=== PATIENT | female | born 1980 | race African-American/Black ===

== ENCOUNTER 2017-01-13 09:19 | Emergency (ER) | payer SELFPAY ==
[~2017-01-13] VITALS: Ht 172.7 cm; Wt 96.2 kg
[~2017-01-13 09:19] MED LIST: ALBUTEROL SULF8.5 GM INH; AZITHROMYCIN250 MG ORAL; DILANTIN100 MG PO; GUAIFENESIN-CO118 M1 ORAL; IBUPROFEN600 MG ORAL; NYQUIL D COLD295 M1 PO; PREDNISONE20 MG ORAL; PROMETHAZINE-C118 M1 ORAL
[2017-01-13 09:55] VITALS: BP 133/62
[2017-01-13] MEDS ORDERED: PROMETHAZINE-C118 M1 ORAL (10:27)
[2017-01-13] MEDS ORDERED: AZITHROMYCIN250 MG ORAL (10:27)
[2017-01-13] MEDS ORDERED: ALBUTEROL SULF8.5 GM INH ×2 (10:27)
[2017-01-13 10:49] VITALS: BP 133/62
--- NOTE | 2017-01-14 06:44 | Emergency Room Report ---
History of Present Illness General Chief Complaint: Upper Respiratory Illness Source: Patient Present Illness HPI 36-year-old female presents to ED for evaluation of sore throat and cough. Notes symptoms for the last 10 days. Cough is productive with greenish phlegm. Notes intermittent chills. Afebrile in triage. Complaining of sore throat. Throbbing, 8/10, nonradiating. She states her son was initially sick then likely passed the symptoms to her. No other aggravating or relieving factors. Denies patient associated symptom Allergies: Coded Allergies: PENICILLINS (Verified Allergy, Severe, Hives, 03/28/13) ACETAMINOPHEN (Verified Adverse Reaction, Severe, GI UPSET, 03/28/13) HYDROCODONE BIT (Verified Adverse Reaction, Severe, GI UPSET, 03/28/13) Patient History Past Medical History: none Past Surgical History: none Pertinent Family History: none Social History: Denies: alcohol use, drug use, smoking Last Menstrual Period: 01/10/17 Now: No : 1 Para: 1 Immunizations: UTD Reviewed Nursing Documentation: PMH: Agreed, PSxH: Agreed Nursing Documentation-PMH Past Medical History: No Stated History Hx Seizures: No Review of Systems All Other Systems: negative except mentioned in HPI Physical Exam Vital Signs Date Time Temp Pulse Resp B/P Pulse Ox O2 Delivery O2 Flow Rate FiO2 01/13/17 09:49 98.1 85 18 133/62 99 Room Air Sp02 EP Interpretation: reviewed, normal General Appearance: no apparent distress, alert, GCS 15, non-toxic Head: normocephalic, atraumatic Eyes: bilateral eye PERRL, bilateral eye normal inspection ENT: hearing grossly normal, normal pharynx, no angioedema, normal voice Neck: full range of motion, supple/symm/no masses Respiratory: chest non-tender, lungs clear, normal breath sounds, speaking full sentences Cardiovascular #1: regular rate, rhythm, no edema Cardiovascular #2: 2+ carotid (R), 2+ carotid (L), 2+ radial (R), 2+ radial (L) , 2+ dorsalis pedis (R), 2+ dorsalis pedis (L) Gastrointestinal: normal bowel sounds, non tender, soft, non-distended, no guarding, no rebound Rectal: deferred Genitourinary: normal inspection, no CVA tenderness Musculoskeletal: back normal, gait/station normal, normal range of motion, non- tender Neurologic: alert, oriented x3, responsive, motor strength/tone normal, sensory intact, speech normal Psychiatric: judgement/insight normal, memory normal, mood/affect normal, no suicidal/homicidal ideation Reflexes: 3+ bicep (R), 3+ bicep (L), 3+ tricep (R), 3+ tricep (L), 3+ knee (R) , 3+ knee (L) Skin: normal color, no rash, warm/dry, well hydrated Lymphatic: no adenopathy Medical Decision Making Diagnostic Impression: Primary Impression: Atypical pneumonia ER Course Hospital Course 36-year-old female presents to ED complaining of cough, sore throat Differential diagnoses include: URI, pharyngitis, otitis media, asthma Clinical course Patient placed on stretcher. After initial history, physical exam reveals a female in no acute distress. Bilateral TM unremarkable. No pharyngeal erythema. No tonsillar exudates. No lymphadenopathy. lungs clear. abdomen soft. Given prolonged persistence of symptoms we will treat as atypical pneumonia Diagnosis - atypical pneumonia Stable and discharged home with Rx Stewart. Instructed to followup with PMD. Return to ED if symptoms recur or worsen Last Vital Signs Date Time Temp Pulse Resp B/P Pulse Ox O2 Delivery O2 Flow Rate FiO2 01/13/17 10:49 98.1 18 133/62 99 Room Air 01/13/17 10:09 85 Status: improved Disposition: HOME, SELF-CARE Condition: Stable Scripts Albuterol Sulfate* (ALBUTEROL SULFATE MDI*) 8.5 Gm Hfa.aer.ad 2 PUFF INH Q6H, #1 EA 0 Refills Prov: GAVIN FOSTER M.D. 01/13/17 Azithromycin* (ZITHROMAX*) 250 Mg Tablet 250 MG ORAL DAILY, #6 TAB 0 Refills Take two tablets by mouth today, then take one tablet by mouth daily for four days Prov: GAVIN FOSTER M.D. 01/13/17 Codeine/Promethazine Hcl* (PROMETHAZINE-CODEINE SYRUP*) 118 Ml Syrup 5 ML ORAL Q6H Y for For Cough, #118 ML 0 Refills Prov: GAVIN FOSTER M.D. 4/8/17 Albuterol Sulfate* (ALBUTEROL SULFATE MDI*) 8.5 Gm Hfa.aer.ad 2 PUFF INH Q4H Y for cough/wheezing, #1 EA 0 Refills Prov: GAVIN FOSTER M.D. 01/13/17 Patient Instructions: Community-Acquired Pneumonia, Adult GAVIN FOSTER M.D. Jan 14, 2017 06:44
== END 2017-01-13 10:52 | disposition home or self-care (01) ==
LOC: EMR 09:58
DX: J18.9 Pneumonia, unspecified organism (principal); R07.0 Pain in throat; Z88.0 Allergy status to penicillin; Z88.6 Allergy status to analgesic agent; Z88.8 Allergy status to other drugs, medicaments and biological substances
CPT/HCPCS: 99284